=== PATIENT | female | born 1990 | race Caucasian/White ===

== ENCOUNTER 2016-09-18 21:39 | Emergency (ER) | payer OTHER ==
[2016-09-18 21:55] VITALS: BP 125/84; RESP 16; O2SAT 100
--- NOTE | 2016-09-18 22:47 | ED PDOC ---
HPI: General Adult Time Seen by Provider: 09/18/16 22:38 Chief Complaint (Nursing): Flu-like Symptoms Chief Complaint (Provider): URI/flu like symptoms History Per: Patient History/Exam Limitations: no limitations Additional Complaint(s): patient presents for evaluation of 1 week of URI symptoms, cough, sore throat, body aches, fever with slight nausea notes similar symptoms in August treated for URI with abx and felt better, then these new symptoms started. she does note visiting [place] over . Past Medical History Reviewed: Historical Data, Nursing Documentation, Vital Signs Vital Signs: Last Vital Signs Temp 101.9 F H 09/18/16 22:48 Pulse 100 H 09/18/16 21:51 Resp 16 09/18/16 21:51 BP 125/84 09/18/16 21:51 Pulse Ox 100 09/18/16 22:47 - Medical History PMH: No Chronic Diseases - Family History Family History: States: Unknown Family Hx - Social History Current smoker - smoking cessation education provided: No Alcohol: Occasional Drugs: Denies - Home Medications Home Medications: Ambulatory Orders Medication Instructions Recorded Ibuprofen [Motrin] 600 mg PO TID PRN #30 tab 09/18/16 Ondansetron [Zofran] 4 mg PO Q8H #8 tab 09/18/16 - Allergies Allergies/Adverse Reactions: Allergies Allergy/AdvReac Type Severity Reaction Status Date / Time iodine Allergy RASH Verified 09/18/16 22:25 Review of Systems ROS Statement: Except As Marked, All Systems Reviewed And Found Negative Constitutional: Positive for: Fever, Chills, Sweats, Malaise Eyes: Negative for: Vision Change Cardiovascular: Negative for: Chest Pain Respiratory: Positive for: Cough. Negative for: Shortness of Breath Gastrointestinal: Positive for: Nausea. Negative for: Vomiting, Abdominal Pain Genitourinary Female: Negative for: Dysuria Skin: Negative for: Rash Neurological: Negative for: Headache, Dizziness Physical Exam - Reviewed Nursing Documentation Reviewed: Yes Vital Signs Reviewed: Yes - Physical Exam Appears: Positive for: Well, Uncomfortable Head Exam: Positive for: NORMAL INSPECTION Skin: Positive for: Normal Color, Warm Eye Exam: Positive for: Normal appearance, EOMI, PERRL. Negative for: Periorbital swelling ENT: Positive for: TM Is/Are (normal ), Pharyngeal Erythema. Negative for: Tonsillar Exudate, Tonsillar Swelling Neck: Positive for: Normal, Painless ROM Cardiovascular/Chest: Positive for: Regular Rate, Rhythm. Negative for: Tachycardia Respiratory: Positive for: Normal Breath Sounds. Negative for: Wheezing Gastrointestinal/Abdominal: Positive for: Normal Exam, Soft. Negative for: Tenderness Extremity: Positive for: Normal ROM, Capillary Refill (normal ). Negative for: Tenderness Neurologic/Psych: Positive for: Alert, Oriented, Gait (normal ). Negative for: Motor/Sensory Deficits - Laboratory Results Urine POC: Negative - ECG O2 Sat by Pulse Oximetry: 100 Pulse Ox Interpretation: Normal Medical Decision Making Medical Decision Makin26 y/o female with URI symptoms, fever, body aches - rapid strep - flu - chest x ray (+) flu symptoms consistent with flu discussed need for lots of fluids. no tx as symptoms are over 1 week discussed return information and follow up. stable for discharge. Disposition - Clinical Impression Clinical Impression: Influenza - Patient ED Disposition Is Patient to be Admitted: No Counseled Patient/Family Regarding: Studies Performed, Diagnosis, Need For Followup, Rx Given - Disposition Disposition: Routine/Home Disposition Time: 23:42 Condition: STABLE Additional Instructions: lots of fluids to stay hydrated motrin and tylenol for fevers and body aches follow up with doctor without fail in 2-3 days for re-evaluation return for any new concerns. Prescriptions: Ibuprofen [Motrin] 600 mg PO TID PRN #30 tab PRN Reason: Other Ondansetron [Zofran] 4 mg PO Q8H #8 tab Instructions: Influenza (ED) Forms: [facility] ED School/Work Excuse Print Language: NIGERIEN
[2016-09-18 23:59] VITALS: TEMP 99.3
[2016-09-19] VITALS: PULSE 87
--- NOTE | 2016-09-19 08:26 | RAD ---
HISTORY: cough, fever COMPARISON: No prior. TECHNIQUE: Chest PA and lateral FINDINGS: LUNGS: No active pulmonary disease. PLEURA: No significant pleural effusion identified. No pneumothorax apparent. CARDIOVASCULAR: Normal. OSSEOUS STRUCTURES: No significant abnormalities. VISUALIZED UPPER ABDOMEN: Normal. OTHER FINDINGS: None. IMPRESSION: No active cardiopulmonary disease.
== END 2016-09-18 23:59 | disposition home or self-care (01) ==
LOC: H.ER 21:39
DX: J11.1 Influenza due to unidentified influenza virus with other respiratory manifestations (principal)